=== PATIENT | male | born 1935 | race Caucasian/White ===

== ENCOUNTER 2022-06-17 10:48 | Inpatient (IN) | payer MEDICARE, MEDICAID, SELFPAY ==
[2022-06-17] VITALS (16 sets, daily range): BP systolic 97–173; BP diastolic 58–84; PULSE 62–77; RESP 16–22; TEMP 36.4–36.8; O2SAT 90–97; BMI 20.7
--- NOTE | 2022-06-17 11:26 | EKG12_ITS ---
Test Reason : WEAKNESS Blood Pressure : / mmHG Vent. Rate : 066 BPM Atrial Rate : 066 BPM P-R Int : 160 ms QRS Dur : 066 ms QT Int : 398 ms P-R-T Axes : 090 -06 056 degrees QTc Int : 417 ms Sinus rhythm with Premature supraventricular complexes Septal infarct , age undetermined Abnormal ECG Confirmed by BLAYNE TANG, СЕРГЕЙ ([id number]), food editor AKUA KRAFT ([id number]) on 06/18/2022 9:13:15 AM Referred By: BB Confirmed By:СЕРГЕЙ CISNEROS MD
--- NOTE | 2022-06-17 11:26 | RAD_ITS ---
STUDY: X-RAY CHEST REASON FOR EXAM: Male, 87 years old. Cough, sob . Weakness. Frequent falls. TECHNIQUE: PA and lateral views of the chest. COMPARISON: None. FINDINGS: EKG electrodes are seen. There is hyperinflation of the lungs consistent with chronic obstructive lung disease (COPD). Scattered calcified granulomas. Findings suggestive of scarring at the lung bases. There is no demonstrated pleural abnormality. Normal size heart. Normal mediastinum and nyla. Normal visualized pulmonary arteries. There is atherosclerotic calcification of the aortic arch with tortuosity. There are diffuse degenerative changes of the visualized thoracic spine. Normal visualized ribs, clavicles, and shoulders. There is no demonstrated abnormality of the visualized soft tissue structures of the upper abdomen. RAD/Chest PA and Lateral IMPRESSION: Hyperinflation. Findings suggestive of scarring at the lung bases. Electronically Signed: Higinio Velzaquez MD at 13:00 EST ,
--- NOTE | 2022-06-17 11:28 | ED.VIS.DYS ---
HPI History of Present Illness Chief Complaint: Shortness of Breath Informant: patient and family (daughter) Onset/Context/Timing Onset: Weeks (1) Context: gradual and onset Timing: Intermittent Quality: Positive for - (short of breath) Current Severity: Mild (sitting in ED at rest) Maximum Severity: Moderate Worsened by: Exertion and Coughing Relieved by: Rest Associated Symptoms cough and fever Chest Pain: Positive for None Narrative Narrative: 87-year-old male who has no known medical problems because he has not gone to the doctor in years, used to live in [place] but recently was brought here to live with his daughter and her . Until 1 week ago, he was ambulatory without assistance and doing well around the house, able to feed himself and clean himself, but in the past week he has had respiratory illness, some fevers near the beginning up to 101, but none known since then, dyspnea, and extreme weakness to the point now where he gets out of bed and falls and is unable to get around at all or even stand because of generally weak. No injury from the fall. He denies pain anywhere else including his chest. States he was a longtime former smoker, he cannot remember how long but started smoking when he was 11. PFSH PFSH Medical History no medical history no medical history Home Medications NK 06/17/22 [History Last Taken Unknown] Allergy/AdvReac Type Severity Reaction Status Date / Time No Known Allergies Allergy Verified 06/17/22 10:50 Social History Smoking Status: Former smoker ROS ROS ED ROS Narrative No travel out of the area except coming here from [place] months ago Constitutional Constitutional ED: Reports chills, fever(s), malaise and weakness Eyes Eyes: Denies change in vision or diplopia ENT ENT ED: Denies rhinorrhea or sore throat Cardiovascular Cardiovascular: Denies chest pain, palpitations or racing heartbeat Respiratory/Chest Respiratory/Chest: Reports cough, dyspnea and dyspnea on exertion Gastrointestinal Gastrointestinal: Denies abdominal pain, diarrhea, nausea or vomiting Genitourinary Genitourinary ED: Denies dysuria or hematuria Musculoskeletal Musculoskeletal: Denies back pain or neck pain Integumentary Denies abscess or rash Neurologic Neurologic: Denies headache(s), paresthesias or weakness Psychiatric Psychiatric: Denies anxiety or suicidal thoughts EXAM Physical Exam Const Vital Signs: 06/17/22 10:50 06/17/22 10:53 06/17/22 10:54 Temperature 98.3 F Temperature Source Oral Pulse Rate 72 Respiratory Rate 16 Respiratory Effort Short of Breath Labored Respiratory Depth Shallow Respiratory Pattern Normal Blood Pressure 156/68 H Blood Pressure Mean 97 Pulse Ox 91 90 Oxygen Delivery Method Room Air Room Air Nasal Cannula Oxygen Flow Rate (L/min) 2 06/17/22 10:55 06/17/22 11:44 06/17/22 12:01 Temperature 98.3 F Temperature Source Oral Pulse Rate 73 75 Respiratory Rate 18 20 H Respiratory Effort Respiratory Depth Respiratory Pattern Tachypnea Blood Pressure 156/68 H Blood Pressure Mean 97 Pulse Ox 93 97 Oxygen Delivery Method Nasal Cannula Nasal Cannula Oxygen Flow Rate (L/min) 2 2 06/17/22 12:02 06/17/22 11:53 06/17/22 13:16 Temperature 98 F 97.6 F L Temperature Source Oral Oral Pulse Rate 62 70 Respiratory Rate 22 H 22 H Respiratory Effort Respiratory Depth Respiratory Pattern Blood Pressure 173/65 H 159/63 H Blood Pressure Mean 101 95 Pulse Ox 96 93 Oxygen Delivery Method Nasal Cannula Nasal Cannula Nasal Cannula Oxygen Flow Rate (L/min) 2 2 2 06/17/22 13:16 Temperature Temperature Source Pulse Rate 70 Respiratory Rate 22 H Respiratory Effort Respiratory Depth Respiratory Pattern Blood Pressure 159/63 H Blood Pressure Mean 95 Pulse Ox 93 Oxygen Delivery Method Nasal Cannula Oxygen Flow Rate (L/min) 2 Positive well nourished, well developed and cachectic General Appearance ED: well developed, cachectic and NAD Nutritional Appearance: cachectic HEENT Reports moist mucous membranes normocephalic and atraumatic Eyes PERRL and EOMs intact bilaterally Neck full ROM, no lymphadenopathy, supple, no meningeal signs and no JVD Resp Resp Narrative: Normal effort of breathing, until patient has bronchospasm with each inspiration, limiting exam. Some Rales left base, may clear with coughing but exam limited due to lots of bronchospasm. Mild expiratory wheezing. Equal breath sounds bilaterally, trachea midline, no respiratory distress when not coughing. Cardio regular rate, regular rhythm and no murmurs Cardio Narrative: Faint heart sounds GI non-tender and non-distended Auscultation: normoactive bowel sounds Palpation: soft Back/Spine no CVA tenderness General Back: other FROM Extremity normal to inspection General Extremety ED: Negative for edema, pulses abnormal or tenderness General Extremity: Negative for edema or pulses abnormal Neuro oriented x3, CN's II-XII intact bilaterally and no sensory deficits noted Sensorium / Orientation: awake and alert Motor Exam: strength 5/5 throughout Psych mental status grossly normal Skin no rashes or lesions noted and no wounds MDM MDM MDM Narrative Medical decision making narrative: COVID and influenza swabs are negative. Two-view chest x-ray on my interpretation shows infiltrate versus scarring in the left base. I reviewed the radiologist's interpretation, suggesting scarring at the bases. He has a leukocytosis of 14.7. He is hypoxic to 87% on room air when he is ambulating gently. This is all an acute illness and I suspect it is pneumonia until proven otherwise. He needs to be admitted because of the severe functional decline, at the very least in addition to the above and oxygen requirement. Started him on antibiotics and plan is for admission to medical surgical floor. He was doing well while resting. Since he may have undiagnosed COPD given his smoking history and decreased breath sounds throughout, I also gave him Solu-Medrol 125 mg. Lab Data Attestation: I reviewed the patient's lab results. Labs: Laboratory Results - last 24 hr 06/17/22 06/17/22 11:40 11:40 WBC 14.7 H RBC 4.16 L Hgb 12.8 L Hct 38.4 L MCV 92.3 MCH 30.8 MCHC 33.3 RDW Std Deviation 46.6 H RDW Coeff of Renae 13.7 Plt Count 199 MPV 11.5 Immature Gran % (Auto) 1.000 H Neut % (Auto) 88.5 H Lymph % (Auto) 7.7 L Lucas % (Auto) 2.7 Eos % (Auto) 0.0 Baso % (Auto) 0.1 Absolute Neuts (auto) 13.0 H Absolute Lymphs (auto) 1.13 Nucleated RBC % 0 Sodium 139 Potassium 3.9 Chloride 104 Carbon Dioxide 30.0 Anion Gap 5 BUN 34 H Creatinine 1.02 Estim Creat Clear Calc 45.37 Est GFR (MDRD) Af Amer 89 Est GFR (MDRD) Non-Af 74 BUN/Creatinine Ratio 33.3 H Glucose 105 Calcium 8.7 Troponin I High Sens 54 Radiography Diagnostic Testing: Clinical Impression(s) from Imaging Studies Chest X-Ray 06/17/22 11:26 IMPRESSION: Hyperinflation. Findings suggestive of scarring at the lung bases. Electronically Signed: Higinio Velazquez MD at 13:00 EST , Rhythm Strip Rhythm Strip: Sinus Rhythm Rate: 70 Ectopy: None EKG Initial EKG: Attestation: I personally reviewed and interpreted this EKG as follows: Interpretation: Sinus Rhythm, No Acute Injury Pattern, Non-Specific ST Changes (likely artifat) and - (V1-2 Q's poss old septal MO) Prior: No Prior Discharge Plan Dx/Rx/DC Orders Clinical Impression: Pneumonia, Hypoxemia, Declining functional status Disposition Disposition: Acute Care [facility]
--- NOTE | 2022-06-17 11:33 | NURSING ---
NO OLD EKGS
[2022-06-17] MEDS: Ipratropium/Albuterol Sulfate 3 ML AMPUL.NEB INHALATION ×2 (11:41→20:28)
[2022-06-17 11:47] LABS: Absolute Lymphocyte Count 1.13 X10^3/uL (0.83-4.51); Basophil# 0.02 X10^3/uL; Basophil% 0.1 % (0-1); Hematocrit 38.4 % (40-54); Hemoglobin 12.8 g/dL (13.0-16.5); Lymphocyte # 1.13 X10^3/ul (0.83-4.51); Lymphocyte % 7.7 % (19-41); Mean Corp Hgb Conc 33.3 g/dL (32-36); Mean Corpuscular Hgb 30.8 pg (27.0-32.0); Mean Corpuscular Volume 92.3 fL (80-94); Mean Platelet Vol. 11.5 fl (6.2-12.0); Monocyte% 2.7 % (0-10); NRBC Flagged by Analyzer 0 % (0-5); Neutrophil # 12.96 X10^3/uL (2.7-7.7); Neutrophil % 88.5 % (47-70); Platelet Count 199 K/mm3 (150-450); RBC Distribution Width CV 13.7 % (11.6-14.6); RBC Distribution Width SD 46.6 fl (35.1-43.9); Red Blood Count 4.16 M/mm3 (4.6-6.2); White Blood Count 14.7 K/mm3 (4.4-11.0)
[2022-06-17 12:04] LABS: Anion Gap 5 (5-15); BUN 34 mg/dL (7-18); BUN/Creat Ratio 33.3 RATIO (10-20); Calcium,Total 8.7 mg/dL (8.5-10.1); Chloride 104 mmol/L (98-107); Creatinine, Serum 1.02 mg/dL (0.70-1.30); EST Glomerular Filtration Rate 74 mL/min (>60); Est Glom Filt Rate - Afr Amer 89 mL/min (>60); Estimated Creatinine Clearance 45.37 ml/min; Glucose 105 mg/dL (74-106); Potassium 3.9 mmol/L (3.5-5.1); Sodium Level 139 mmol/L (136-145); Troponin-I HS 54 pg/mL (3.0-78.0)
[2022-06-17] MEDS: MethylPREDNISolone 125 MG/2 ML Vial IV (12:16)
[2022-06-17] MEDS: 0.9% Normal Saline 1,000 ML 150 ML IV (12:16)
--- NOTE | 2022-06-17 13:17 | HP.PCM.HOS_ITS ---
HPI - General General Date of Service: 06/17/22 HPI Narrative MATTIE MIRELES, is a 87 M with a PMH as outlined who presents via the ED with a complaint of shortness of breath. Patient recently relocated to [place] from [place] to live with his daughter and son in law. He hasnt seen a doctor in several years. He has a long smoking history and smoked for~ 40 years; he says he quit in the 1970s and started when he was 11 years. He was brought in with a complaint of shortness of breath, with associated fever up to 101F. he had associated weakness and frequent falls and was unable to ambulate at home. He denied any chest pain, palpitations, dizziness, nausea, vomiting or diarrhea. Review of systems is otherwise negative. Vitals were temp of 97.6F, AL of 70, BP of 159/63, RR of 22 and he was saturating at 93% on 2L of oxygen. CBC showed wbc of 14.7, Hb of 12.8 and platelets of 199. CHemistry was largely unremarkable. COVID and influenza screen was negative. CXR showed findings suggestive of scarring at the lung bases. He was started on antibiotics for community acquired pneumonia, and is being admitted to be managed for debility due to community acquired pneumonia. [facility] Medical History no medical history Home Medications NK 06/17/22 [History Last Taken Unknown] Allergy/AdvReac Type Severity Reaction Status Date / Time No Known Allergies Allergy Verified 06/17/22 10:50 Social History Smoking Status: Former smoker ROS Constitutional Constitutional: Reports chills, fatigue, fever(s), malaise and weakness; Denies anorexia Eyes Eyes: Denies change in vision or discharge from eye(s) ENT HEENT: Denies dysphagia, headache(s), hearing loss, nasal congestion, sinus pressure or sore throat Cardiovascular Cardiovascular: Reports dyspnea on exertion; Denies chest pain, edema, l ightheadedness, orthopnea, palpitations, paroxysmal nocturnal dyspnea, rapid heart rate or syncope Respiratory/Chest Respiratory/Chest: Reports cough, dyspnea, productive cough, shortness of breath at rest and shortness of breath with exertion; Denies excessive phlegm production or wheezing Gastrointestinal Gastrointestinal: Denies abdominal pain, constipation, diarrhea, dyspepsia, hematemesis, nausea or vomiting Genitourinary Genitourinary: Denies burning urination or dysuria Musculoskeletal Musculoskeletal: Denies arthralgias Neurologic Neurologic: Denies confusion, dizziness, focal weakness or headache(s) Psychiatric Psychiatric: Denies anxiety Hematologic/Lymphatic Hematologic/Lymphatic: Denies anemia Vital Signs Vital Signs Vital Signs: 06/17/22 10:50 06/17/22 10:53 06/17/22 10:54 Temperature 98.3 F Temperature Source Oral Pulse Rate 72 Respiratory Rate 16 Respiratory Effort Short of Breath Labored Respiratory Depth Shallow Respiratory Pattern Normal Blood Pressure 156/68 H Blood Pressure Mean 97 Pulse Ox 91 90 Oxygen Delivery Method Room Air Room Air Nasal Cannula Oxygen Flow Rate (L/min) 2 06/17/22 10:55 06/17/22 11:44 06/17/22 12:01 Temperature 98.3 F Temperature Source Oral Pulse Rate 73 75 Respiratory Rate 18 20 H Respiratory Effort Respiratory Depth Respiratory Pattern Tachypnea Blood Pressure 156/68 H Blood Pressure Mean 97 Pulse Ox 93 97 Oxygen Delivery Method Nasal Cannula Nasal Cannula Oxygen Flow Rate (L/min) 2 2 06/17/22 12:02 06/17/22 11:53 Temperature 98 F Temperature Source Oral Pulse Rate 62 Respiratory Rate 22 H Respiratory Effort Respiratory Depth Respiratory Pattern Blood Pressure 173/65 H Blood Pressure Mean 101 Pulse Ox 96 Oxygen Delivery Method Nasal Cannula Nasal Cannula Oxygen Flow Rate (L/min) 2 2 Weight Weight: 136 lb 0.403 oz Body Mass Index (BMI) 20.7 Physical Exam Const alert, oriented x3 and no apparent distress Constitutional Narrative: frail General Appearance: cooperative HEENT normocephalic and head/scalp atraumatic HEENT Narrative: dry oral mucous membranes Mouth: moist mucous membranes abnormal Eyes PERRL and EOMs intact bilaterally Neck no lymphadenopathy Resp Resp Narrative: diminished breath sounds bilaterally; coarse crackles in left lower lung knapp, no wheezes. On 2L of oxygen by nasal canula Cardio regular rate, regular rhythm, S1 normal heart sound, S2 normal heart sound and no murmurs GI normal to inspection, nondistended, normoactive bowel sounds, soft to palpation and non-tender Extremity normal to inspection, full ROM and no clubbing, cyanosis or edema Neuro oriented x3, CN's II-XII intact bilaterally, moves all extremities and no focal motor deficits Sensorium / Orientation: awake and alert Motor Exam: strength 5/5 throughout Psych affect normal Results Lab / Micro Data Result Diagrams: 06/17/22 11:40 06/17/22 11:40 Labs: Laboratory Results - last 24 hr 06/17/22 11:40: WBC 14.7 H, RBC 4.16 L, Hgb 12.8 L, Hct 38.4 L, MCV 92.3, MCH 30.8, MCHC 33.3, RDW Std Deviation 46.6 H, RDW Coeff of Renae 13.7, Plt Count 199, MPV 11.5, Immature Gran % (Auto) 1.000 H, Neut % (Auto) 88.5 H, Lymph % (Auto) 7.7 L, [place] % (Auto) 2.7, Eos % (Auto) 0.0, Baso % (Auto) 0.1, Absolute Neuts (auto) 13.0 H, Absolute Lymphs (auto) 1.13, Nucleated RBC % 0 06/17/22 11:40: Sodium 139, Potassium 3.9, Chloride 104, Carbon Dioxide 30.0, Anion Gap 5, BUN 34 H, Creatinine 1.02, Estim Creat Clear Calc 45.37, Est GFR (MDRD) Af Amer 89, Est GFR (MDRD) Non-Af 74, BUN/Creatinine Ratio 33.3 H, Glucose 105, Calcium 8.7, Troponin I High Sens 54 Micro: Microbiology 06/17/22 11:35 Nasal Secretion SARS-CoV-2 & FLU Antigen (Rapid) - Final Rhythm Strip Rhythm Strip: Sinus Rhythm Rate: 70 Ectopy: None Radiology Impression Chest X-Ray 06/17/22 11:26 IMPRESSION: Hyperinflation. Findings suggestive of scarring at the lung bases. Electronically Signed: Higinio Velazquez MD at 13:00 EST , Assessment & Plan Assessment/Plan (1) Hypoxemia: (2) Pneumonia: PLAN: Plan #Hypoxia due to community acquired pneumonia * admit to med surg * hydrate gently with IVF * wbc is 14.7; he also complains of fever and productive cough * CXR showed hyperinflation and findings suggestive of scarring at hte lung bases * start on IV ceftriaxone and azithromycin * get sputum culture and complete respiratory panel * give IV solumedrol for presumed COPD exacerbation also, since he has a long history of smoking, and CXR showed hyperinflation suggestive of COPD * #Probable COPD * He has a very long smoke history. He says he started at 11 and he claims he stopped in the 1970s. However have difficulty believing this is initially patient will be treated IV no when he stopped. I suspect he may have smoked for several decades. * Chest x-ray does show hyperinflation suggestive of COPD. * Breathing treatments of bronchodilators. Also placed on IV Solu-Medrol for presumed COPD exacerbation. * #Elevated blood pressure * Blood pressure was 160/58 at time of review. * Patient has not seen a doctor in at least 15 years. * doesnt know if he has hypertension. If BP remains elevated, will start BP meds * IV hydralazine prn * #Debility due to frequent falls * has been falling often at home. hasnt hit his head * PT/OT consult * fall precautions * DVT prophylaxis: lovenox Code status: full code * Patient counseled extensively about different types of CODE STATUS including full code, DNR CCA and DNR CCA. Patient elects to be full code. * Total [id number] time 17 minutes. Charges/Coding Visit Charges Inpatient E&M: 01395 Init Hosp L3 Procedures Hospitalists Procedures: 94605 Advncd Care Plan 30 Min
--- NOTE | 2022-06-17 13:19 | NURSING ---
DR CARRENO FOR DR COLLAZO
[2022-06-17] MEDS: Ceftriaxone 1 GM/50 ML BAG IV ×2 (13:24→23:04)
--- NOTE | 2022-06-17 13:29 | NURSING ---
MED SURG KORAM PNEUMONIA, HYPOXEMIA
[2022-06-17] MEDS: 0.9% Saline Lock 10 ML Syringe IV ×2 (19:07→19:54)
[2022-06-17] MEDS: 0.9% Normal Saline 1,000 ML 125 ML IV (19:47)
[2022-06-17] MEDS: Nystatin Powder 15gm Bottle 1 APPLIC TOPICAL (23:04)
[2022-06-18] VITALS (11 sets, daily range): BP systolic 118–162; BP diastolic 50–85; PULSE 50–82; RESP 16–20; TEMP 36.5–37.2; O2SAT 92–97
[2022-06-18] MEDS: 0.9% Saline Lock 10 ML Syringe IV ×6 (04:16→22:42)
[2022-06-18] MEDS: Ipratropium/Albuterol Sulfate 3 ML AMPUL.NEB INHALATION ×4 (07:07→20:58)
[2022-06-18 07:40] LABS: Absolute Lymphocyte Count 0.72 X10^3/uL (0.83-4.51); Absolute Neutrophil Count 15.2 X10^3/uL (2.0-7.7); Basophil# 0.03 X10^3/uL; Basophil% 0.2 % (0-1); Hematocrit 35.9 % (40-54); Hemoglobin 11.8 g/dL (13.0-16.5); Lymphocyte # 0.72 X10^3/ul (0.83-4.51); Lymphocyte % 4.4 % (19-41); Mean Corp Hgb Conc 32.9 g/dL (32-36); Mean Corpuscular Hgb 30.6 pg (27.0-32.0); Mean Corpuscular Volume 93.2 fL (80-94); Mean Platelet Vol. 12.3 fl (6.2-12.0); Monocyte# 0.34 X10^3/uL; Monocyte% 2.1 % (0-10); NRBC Flagged by Analyzer 0 % (0-5); Neutrophil # 15.17 X10^3/uL (2.7-7.7); Neutrophil % 92.7 % (47-70); Platelet Count 207 K/mm3 (150-450); RBC Distribution Width CV 13.7 % (11.6-14.6); RBC Distribution Width SD 46.5 fl (35.1-43.9); Red Blood Count 3.85 M/mm3 (4.6-6.2); White Blood Count 16.4 K/mm3 (4.4-11.0)
[2022-06-18 07:49] LABS: Anion Gap 6 (5-15); BUN 33 mg/dL (7-18); BUN/Creat Ratio 35.8 RATIO (10-20); Calcium,Total 8.1 mg/dL (8.5-10.1); Chloride 108 mmol/L (98-107); Creatinine, Serum 0.92 mg/dL (0.70-1.30); EST Glomerular Filtration Rate 83 mL/min (>60); Est Glom Filt Rate - Afr Amer 100 mL/min (>60); Glucose 147 mg/dL (74-106); Potassium 3.7 mmol/L (3.5-5.1); Sodium Level 141 mmol/L (136-145)
[2022-06-18] MEDS: Ceftriaxone 1 GM/50 ML BAG IV ×2 (08:40→21:22)
[2022-06-18] MEDS: Enoxaparin 40 MG/0.4 ML Syringe SC (08:41)
[2022-06-18] MEDS: Nystatin Powder 15gm Bottle 1 APPLIC TOPICAL ×2 (08:41→21:22)
--- NOTE | 2022-06-18 10:09 | PN.HOSP_ITS ---
Subjective Subjective Follow-up for pneumonia, shortness of breath with productive cough. Objective Data Objective Data Vital Signs: Vital Signs Temp Pulse Resp BP Pulse Ox O2 Del Method O2 Flow Rate 97.8 F 68 20 H 135/65 H 94 Nasal Cannula 2 06/18/22 09:03 06/18/22 09:03 06/18/22 09:03 06/18/22 09:03 06/18/22 09:03 06/18/22 07:06 06/18/22 07:06 Oxygen Flow Rate (L/min) 2 Oxygen Delivery Method Nasal Cannula Weight: 136 lb 0.403 oz Body Mass Index (BMI) 20.7 Intake & Output: Intake and Output for Last 24 Hours 06/16/22 06/17/22 06/18/22 23:59 23:59 23:59 Intake Total 1765.42 / 1765.42 639.83 / 639.83 Output Total 0 / 0 Balance 1765.42 / 1765.42 639.83 / 639.83 Lab / Micro Data Result Diagrams: 06/18/22 06:45 06/18/22 06:45 Labs: Laboratory Results - last 24 hr 06/17/22 11:40: WBC 14.7 H, RBC 4.16 L, Hgb 12.8 L, Hct 38.4 L, MCV 92.3, MCH 30.8, MCHC 33.3, RDW Std Deviation 46.6 H, RDW Coeff of Renae 13.7, Plt Count 199, MPV 11.5, Immature Gran % (Auto) 1.000 H, Neut % (Auto) 88.5 H, Lymph % (Auto) 7.7 L, [place] % (Auto) 2.7, Eos % (Auto) 0.0, Baso % (Auto) 0.1, Absolute Neuts (auto) 13.0 H, Absolute Lymphs (auto) 1.13, Nucleated RBC % 0 06/17/22 11:40: Sodium 139, Potassium 3.9, Chloride 104, Carbon Dioxide 30.0, Anion Gap 5, BUN 34 H, Creatinine 1.02, Estim Creat Clear Calc 45.37, Est GFR (MDRD) Af Amer 89, Est GFR (MDRD) Non-Af 74, BUN/Creatinine Ratio 33.3 H, Glucose 105, Calcium 8.7, Troponin I High Sens 54 06/17/22 11:40: B-Natriuretic Peptide 176.0 H 06/18/22 06:45: WBC 16.4 H, RBC 3.85 L, Hgb 11.8 L, Hct 35.9 L, MCV 93.2, MCH 30.6, MCHC 32.9, RDW Std Deviation 46.5 H, RDW Coeff of Renae 13.7, Plt Count 207, MPV 12.3 H, Immature Gran % (Auto) 0.600, Neut % (Auto) 92.7 H, Lymph % (Auto) 4.4 L, [place] % (Auto) 2.1, Eos % (Auto) 0.0, Baso % (Auto) 0.2, Absolute Neuts (auto) 15.2 H, Absolute Lymphs (auto) 0.72 L, Nucleated RBC % 0 06/18/22 06:45: Sodium 141, Potassium 3.7, Chloride 108 H, Carbon Dioxide 27.0, Anion Gap 6, BUN 33 H, Creatinine 0.92, Estim Creat Clear Calc 50.30, Est GFR (MDRD) Af Amer 100, Est GFR (MDRD) Non-Af 83, BUN/Creatinine Ratio 35.8 H, Glucose 147 H, Calcium 8.1 L Micro: Microbiology 06/17/22 11:35 Nasal Secretion SARS-CoV-2 & FLU Antigen (Rapid) - Final Radiography Diagnostic Testing: Radiology Impression Chest X-Ray 06/17/22 11:26 IMPRESSION: Hyperinflation. Findings suggestive of scarring at the lung bases. Electronically Signed: Higinio Velazquez MD at 13:00 EST , Rhythm Strip Rhythm Strip: Sinus Rhythm Rate: 70 Ectopy: None Physical Exam Narrative Seen and examined. Patient has productive cough but he swallows the sputum. No fever recorded in the hospital. Patient walked around the nursing station gets short of breath. Physical exam General: Alert, Oriented x3, Cooperative HEENT: Atraumatic, PERRLA, EOMI, Normocephalic Oral: No Gingival or Mucosal Lesions/ Ulcerations Neck: Supple, No JVD, Negative Carotid Bruits Lungs: Air entry diminished in bilateral lung bases. Mild left-sided basilar crepitation. On 2 L of oxygen Cardiovascular: Regular rate, Regular Rhythm, Normal S1, Normal S2, systolic murmur LLSB Abdomen: Bowel Sounds Present, Soft, Non Tender, Non-Distended : No renal angle tenderness. No suprapubic tenderness. Extremities: No edema, Capillary Refill Less than 3 Seconds Skin: No rashes, No breakdown Musculoskeletal: No Tenderness to Palpation of Joints or Extremities, moderate atrophy of Thigh Muscles. Neurological: Cranial nerves II-XII grossly intact, DTR 2+/4 and Symmetrical, muscle strength 4+/5 at knee and hip joints. Psych/Mental Status: Normal Affect, Appropriate. Assessment & Plan Assessment/Plan (1) Hypoxemia: (2) Pneumonia: PLAN: Plan 87-year-old gentleman was admitted with shortness of breath and fever 101 Fahrenheit yesterday with weakness and frequent falls. No chest pain. He has long history of smoking more than 40 years, quit in 1969 started at the age of 11. #Hypoxia due to community acquired pneumonia: [facility] Has leukocytosis. Chest x-ray image reviewed shows infiltrate at left lung base with scarring. On IV ceftriaxone and azithromycin. Sputum culture pending.Rapid SARS-CoV-2 and flu antigen are negative. Urinary antigens are ordered. * give IV solumedrol for presumed COPD exacerbation also, since he has a long history of smoking, and CXR showed hyperinflation suggestive of COPD #Presumed COPD with exacerbation: Patient is on IV Solu-Medrol with prolonged history of his smoking for more than 40 years. Chest x-ray also shows hyperinflation. Patient will need outpatient pulmonary follow-up for PFT. #Elevated blood pressure * Blood pressure was 160/58 during admission. Has not seen For last 15 years. On IV hydralazine as needed. Most recent blood pressure is 118/50 and 135/65. Monitor blood pressure. Will need outpatient home BP monitoring or ambulatory BP monitoring to diagnose hypertension. #Debility due to frequent falls * has been falling often at home. hasnt hit his head * PT/OT consult * fall precautions DVT prophylaxis: lovenox Code status: full code * Patient counseled extensively about different types of CODE STATUS including full code, DNR CCA and DNR CCA. Patient elects to be full code. Charges/Coding Visit Charges Inpatient E&M: 77533 Subs Hosp L2
--- NOTE | 2022-06-18 14:01 | CHAPLAIN ---
Type of Pastoral Visit _x__ Initial Visit ___ Follow-up Visit ___ On-call Visit ___ General Patient Visit ___ Spiritual Assessment ___ Family Conference ___ Bereavement ___ Rapid Response ___ Code Blue ___ Other (describe below) Pastoral Care Referral From _x__ Patient ___ Family ___ Nurse ___ Physician ___ Cath Lab ___ Case Assistant ___ Other (describe below) Sacrament/Intervention _x__ Active listening ___ Anointing ___ Mu-Ism ___ Bereavement ___ Communion _x__ Joyce exploration ___ _x__ Life review _x__ Prayer ___ Reconciliation ___ Sacrament of Sick _x__ Supportive presence ___ Wedding ___ Other (describe below) Pastoral Comments patient is welcoming and reports on his situation and recent move back to this area to be close to family; pt states he is used to living [place] [facility] [place] and he swamps and likes it that way; pt identifies himself as a [place] in his joyce although he has explored several faiths including Catholicism, Protestantism, and Tenriism; pt welcomes prayer and presence for time of talking
--- NOTE | 2022-06-18 14:45 | CASEMGMT ---
Social Work? ? SW in to pt room to verify advance directives. Pt confirmed has AD and named?Amy Omalley,?daughter, as agent. SW made pt aware documents are not on file and if pt would like to bring these documents in the documents can be dropped off at the Medical Records department. Pt voiced understanding.?? ? ANDRÉS Hsieh?
--- NOTE | 2022-06-18 14:50 | CASEMGMT ---
MED RODRIGUEZ Assessment: Face to Face with pt for initial transition planning/care coordination assessment. MED RODRIGUEZ introduced self and role at [facility], pt voices understanding and consents to assessment. Pt is A/O x4 and answers all questions appropriately at this time. Pt sitting up in chair with oxygen on in no distress. Care providers, pharmacy, and demographics verified/updated. Admitting Dx: debility, community acquired pneumonia PCP:Pt denies, provided pt with a local healthcare directory as pt is interested in obtaining a pcp. Specialists:Pt denies. Preferred Pharmacy: [facility] Retail Insurance: [employer] [facility] Prescription Benefit: yes LNOK: Amy Omalley, dtr Living Arrangements: Pt lives with dtr, son in law and granddtr in a two story home with no steps to enter. Pt reports he is I in ADL's and denies concerns at home. Transportation: Pt drives self and denies concerns with transportation. DME/HHC/SNF: Pt has a cane at home. Pt denies need for a walker. Pt denies hx of HHC or SNF stays. Pt states he has not seen a doctor in 40 years. Pt states no concerns with going home at time of dc. Pt gave permission to speak to his dtr regarding his dc plan. TC to pt dtr Amy, she is interested in HHC for pt. Made her aware pt will need a PCP prior to being able to have this set up. She is aware pt was provided a local healthcare directory pamphlet in his room and a list of HHC providers including quality and resource use data and consistent with the patient?s preferred geographic region, medical needs, and insurance network were provided from the [employer] Guide for reference. Pt states no further concerns/needs. CM to follow. Advised pt to ask CM if any further question/concerns/needs arise, voices understanding. Pt Goal: Home Plan: Home
[2022-06-18] MEDS: guaiFENesin 600 MG Tablet PO (22:41)
[2022-06-18] MEDS: Menthol/Lanolin/Calamine/Znox 113 GM Tube 1 APPLIC TOPICAL (22:42)
[2022-06-19] VITALS (9 sets, daily range): BP systolic 106–134; BP diastolic 38–73; PULSE 64–91; RESP 16–20; TEMP 36.4–36.9; O2SAT 90–97
[2022-06-19] MEDS: 0.9% Saline Lock 10 ML Syringe IV ×3 (05:24→22:22)
[2022-06-19] MEDS: Ipratropium/Albuterol Sulfate 3 ML AMPUL.NEB INHALATION ×4 (07:25→20:32)
[2022-06-19] MEDS: Ceftriaxone 1 GM/50 ML BAG IV ×2 (10:05→22:22)
[2022-06-19] MEDS: guaiFENesin 600 MG Tablet PO ×2 (10:23→22:17)
[2022-06-19] MEDS: Enoxaparin 40 MG/0.4 ML Syringe SC (10:23)
[2022-06-19] MEDS: Nystatin Powder 15gm Bottle 1 APPLIC TOPICAL ×2 (10:23→22:18)
[2022-06-19] MEDS: Menthol/Lanolin/Calamine/Znox 113 GM Tube 1 APPLIC TOPICAL ×2 (10:23→22:17)
--- NOTE | 2022-06-19 10:28 | PCM.PN.HOSP ---
Subjective Subjective Follow-up for pneumonia with COPD exacerbation Objective Data Objective Data Vital Signs: Vital Signs Temp Pulse Resp BP Pulse Ox O2 Del Method O2 Flow Rate 98.4 F 86 19 H 131/73 H 92 Room Air 2 06/19/22 10:10 06/19/22 10:10 06/19/22 10:10 06/19/22 10:10 06/19/22 10:10 06/19/22 10:10 06/19/22 07:25 Oxygen Flow Rate (L/min) 2 Oxygen Delivery Method Room Air Weight: 136 lb 0.403 oz Body Mass Index (BMI) 20.7 Intake & Output: Intake and Output for Last 24 Hours 06/17/22 06/18/22 06/19/22 23:59 23:59 23:59 Intake Total 1765.42 / 1765.42 1731.83 / 1731.83 Output Total 850 / 850 Balance 1765.42 / 1765.42 881.83 / 881.83 Lab / Micro Data Result Diagrams: 06/18/22 06:45 06/18/22 06:45 Micro: Microbiology 06/18/22 21:40 Urine, Clean Catch Legionella Antigen - Final 06/18/22 21:40 Urine, Clean Catch Streptococcus pneumoniae Antigen (M - Final Streptococcus pneumonia Ag 06/17/22 11:35 Nasal Secretion SARS-CoV-2 & FLU Antigen (Rapid) - Final Rhythm Strip Rhythm Strip: Sinus Rhythm Rate: 70 Ectopy: None Physical Exam Narrative Seen and examined. Patient shortness of breath and cough is better. Physical exam General: Alert, Oriented x3, Cooperative HEENT: Atraumatic, PERRLA, EOMI, Normocephalic Oral: No Gingival or Mucosal Lesions/ Ulcerations. Oral mucosa moist. Neck: Supple, No JVD, Negative Carotid Bruits Lungs:? Air entry diminished in bilateral lung bases.? Bilateral coarse crepitations occasionally. Cardiovascular: Regular rate, Regular Rhythm, Normal S1, Normal S2, systolic murmur LLSB Abdomen: Bowel Sounds Present, Soft, Non Tender, Non-Distended : No renal angle tenderness.? No suprapubic tenderness. Extremities: No edema, Capillary Refill Less than 3 Seconds Skin: No rashes, No breakdown Musculoskeletal: No Tenderness to Palpation of Joints or Extremities, moderate atrophy of Thigh Muscles. Neurological: Cranial nerves II-XII grossly intact, DTR? 2+/4 and Symmetrical, muscle strength 4+/5 at knee and hip joints. Psych/Mental Status: Normal Affect, Appropriate. Assessment & Plan Assessment/Plan (1) Hypoxemia: (2) Pneumonia: PLAN: Plan 87-year-old gentleman was admitted with shortness of breath and fever 101 Fahrenheit yesterday with weakness and frequent falls. No chest pain. He has long history of smoking more than 40 years, quit in 1970 started at the age of 11. #Hypoxia due to community acquired pneumonia: [facility]. Has leukocytosis. Chest x-ray image reviewed shows infiltrate at left lung base with scarring. On IV ceftriaxone and azithromycin. Sputum culture pending.Rapid SARS-CoV-2 and flu antigen are negative. 06/19: Urinary antigens are negative. Sputum culture is pending. #Presumed COPD with exacerbation: Patient is on IV Solu-Medrol with prolonged history of his smoking for more than 40 years. Chest x-ray also shows hyperinflation. Patient will need outpatient pulmonary follow-up for PFT. 06/19: Shortness of breath is better. #Elevated blood pressure Blood pressure was 160/58 during admission. Has not seen For last 15 years. On IV hydralazine as needed. Most recent blood pressure is 118/50 and 135/65. Monitor blood pressure. Will need outpatient home BP monitoring or ambulatory BP monitoring to diagnose hypertension. #Debility due to frequent falls has been falling often at home. hasnt hit his head PT/OT consult fall precautions DVT prophylaxis: lovenox Code status: full code Patient counseled extensively about different types of CODE STATUS including full code, DNR CCA and DNR CCA. Patient elects to be full code. Charges/Coding Visit Charges Inpatient E&M: 86705 Subs Hosp L2
--- NOTE | 2022-06-19 16:11 | NURSING ---
Daughter had got the pt a new PCP with [facility] [address] - daughter could not remember the doctors name. appt is set for Jun 30, 2022 @ 10am.
[2022-06-20 02:55] VITALS: O2SAT 86
[2022-06-20 03:00] VITALS: BP 133/44; PULSE 54; RESP 18; TEMP 36.9; O2SAT 94
[2022-06-20] MEDS: 0.9% Saline Lock 10 ML Syringe IV (05:47)
[2022-06-20 07:03] VITALS: PULSE 64; RESP 18; O2SAT 95
[2022-06-20] MEDS: Ipratropium/Albuterol Sulfate 3 ML AMPUL.NEB INHALATION (07:04)
[2022-06-20 07:39] VITALS: BP 154/81; PULSE 81; RESP 18; TEMP 36.2; O2SAT 92
[2022-06-20] MEDS: Ceftriaxone 1 GM/50 ML BAG IV (09:28)
[2022-06-20] MEDS: Menthol/Lanolin/Calamine/Znox 113 GM Tube 1 APPLIC TOPICAL (09:29)
[2022-06-20] MEDS: Nystatin Powder 15gm Bottle 1 APPLIC TOPICAL (09:29)
[2022-06-20] MEDS: Enoxaparin 40 MG/0.4 ML Syringe SC (09:30)
[2022-06-20] MEDS: guaiFENesin 600 MG Tablet PO (09:30)
--- NOTE | 2022-06-20 10:13 | DCINST_ITS ---
Discharge Instructions Diet Discharge Diet: No restrictions Activity Discharge Activity: Return to Normal Activity and May Not Drive Weight Bearing Status: Weight bearing as tolerated Dressing / Incision Call your doctor if you observe: Fever of 101 or Higher, Coldness, Increased Pain, Numbness or Tingling, Change in Color, Inability to urinate, Inability to have a bowel movement, Shortness of breath, Dizziness, Fainting spells, Swelling in the ankles, Chest pain, Prolonged hiccupping, Increased palpitations (irregular heartbeat) and Calf discomfort Follow Up Care When: IN 2 WEEKS Test Results: Test results from this visit will be discussed in further detail at your follow- up appointment, if applicable. Discharge Plan Admission Admit Date/Time: 06/17/22 13:48 Primary Reason for Your Visit: Pneumonia and copd exa Attending Provider: Juno Workman Primary Care Provider: Care Physician,No Primary Consulting Providers: Roula Hurst Discharge Orders/Prescriptions Prescriptions: New cefdinir 300 mg capsule 300 mg PO BID 5 Days Qty: 10 0RF albuterol sulfate 90 mcg/actuation HFA aerosol inhaler 2 puff inhalation Q6H PRN (Reason: shortness of breath or wheezing) Qty: 8.5 0RF prednisone 20 mg tablet 40 mg PO DAILY 5 Days Qty: 10 0RF pseudoephedrine-guaifenesin [Mucinex D] 60-600 mg tablet extended release 12 hr 1 tab PO BID Qty: 14 0RF Referrals / Follow Up: Jean Le DO [Med Staff - Active Staff] - Within 2 Weeks (COPD exa with Pneumonia, PFT work up) Care Physician,No Primary [Primary Care Provider] - Disposition Disposition (needs filled in before D/C Order can be placed): Home, Self Care
[2022-06-20 10:22] VITALS: O2SAT 87; O2SAT 93; O2SAT 95
--- NOTE | 2022-06-20 10:22 | PCM.DC.SUM ---
Providers Date of Admission: 06/17/22 Date of Discharge: 06/20/22 Primary Care Physician: No Primary Care Phys Reason For Visit: DEBILITY, COMMUNITY ACQUIRED PNEUMONIA Diagnosis Discharge Diagnosis (1) Hypoxemia: Status: Acute Code(s): R09.02 - Hypoxemia (2) Pneumonia: Status: Acute Code(s): J18.9 - Pneumonia, unspecified organism Plan 87-year-old gentleman was admitted with shortness of breath and fever 101 Fahrenheit yesterday with weakness and frequent falls. No chest pain. He has long history of smoking more than 40 years, quit in 1969 started at the age of 11. #Hypoxia due to community acquired left lower lobe pneumococcal pneumonia: Patient is admitted on [facility] floor. Has leukocytosis. Chest x-ray image reviewed shows infiltrate at left lung base with scarring. On IV ceftriaxone and azithromycin. Sputum culture pending.Rapid SARS-CoV-2 and flu antigen are negative. 06/19: Urinary antigens are negative. 06/20: Hypoxia resolved. Urinary antigen positive for streptococcal pneumonia. The patient had about 4 days of IV antibiotic ceftriaxone. Discharged on 5 more days of [id number] mg twice daily. Prescription also given for prednisone 40 mg daily for 5 days burst steroid therapy and albuterol inhaler and Mucinex DM. Advised to follow-up in pulmonary clinic in 2 weeks for PFT. 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 #Presumed COPD with exacerbation: Patient is on IV Solu-Medrol with prolonged history of his smoking for more than 40 years. Chest x-ray also shows hyperinflation. Patient will need outpatient pulmonary follow-up for PFT. 06/19: Shortness of breath is better. #Elevated blood pressure Blood pressure was 160/58 during admission. Has not seen For last 15 years. On IV hydralazine as needed. Most recent blood pressure is 118/50 and 135/65. Monitor blood pressure. Will need outpatient home BP monitoring or ambulatory BP monitoring to diagnose hypertension. 06/20 blood pressure is 154/81. Prescription for low-dose lisinopril 5 mg daily. #Debility due to frequent falls has been falling often at home. hasnt hit his head PT/OT consult fall precautions DVT prophylaxis: lovenox Code status: full code Patient counseled extensively about different types of CODE STATUS including full code, DNR CCA and DNR CCA. Patient elects to be full code. Discharge medication reconciliation done. Discharge follow-up instructions completed. Discharge process discussed with the patient and all questions were answered to patient's satisfaction. Total time spent, exact 35 minutes on discharge meds reconciliation, examination, coordination of care with nurses and ancillary staff, review of imaging and blood test and discussion with the patient on follow-up instructions. Medications at Discharge Home Medications albuterol sulfate 90 mcg/actuation aerosol inhaler 2 puff inhalation Q6H PRN shortness of breath or wheezing #8.5 grams 06/20/22 cefdinir 300 mg capsule 300 mg PO BID 5 days #10 caps 06/20/22 lisinopril 5 mg tablet 5 mg PO DAILY #30 tabs 06/20/22 prednisone 20 mg tablet 40 mg PO DAILY 5 days #10 tabs 06/20/22 pseudoephedrine-guaifenesin ER 60 mg-600 mg tablet,extend release 12hr (Mucinex D) 1 tab PO BID cold symptoms #14 tabs 06/20/22 Physical Exam Narrative Seen and examined. Patient shortness of breath and cough is better. He is very pleasant with the nursing care Physical exam General: Alert, Oriented x3, Cooperative HEENT: Atraumatic, PERRLA, EOMI, Normocephalic Oral: No Gingival or Mucosal Lesions/ Ulcerations. Oral mucosa moist. Neck: Supple, No JVD, Negative Carotid Bruits Lungs:? Air entry diminished in bilateral lung bases.? Occasional rhonchi bilaterally. Cardiovascular: Regular rate, Regular Rhythm, Normal S1, Normal S2, systolic murmur LLSB Abdomen: Bowel Sounds Present, Soft, Non Tender, Non-Distended : No renal angle tenderness.? No suprapubic tenderness. Extremities: No edema, Capillary Refill Less than 3 Seconds Skin: No rashes, No breakdown Musculoskeletal: No Tenderness to Palpation of Joints or Extremities, moderate atrophy of Thigh Muscles. Neurological: Cranial nerves II-XII grossly intact, DTR? 2+/4 and Symmetrical, muscle strength 4+/5 at knee and hip joints. Psych/Mental Status: Normal Affect, Appropriate. Weight / BMI Weight Weight: 136 lb 0.403 oz Body Mass Index (BMI) 20.7 ABG / Lab / Microbiology Data Result Diagrams: 06/18/22 06:45 06/18/22 06:45 Microbiology: Microbiology 06/18/22 21:40 Urine, Clean Catch Legionella Antigen - Final 06/18/22 21:40 Urine, Clean Catch Streptococcus pneumoniae Antigen (M - Final Streptococcus pneumonia Ag 06/17/22 11:35 Nasal Secretion SARS-CoV-2 & FLU Antigen (Rapid) - Final D/C Instructions Discharge Diet: No restrictions Weight Bearing Status: Weight bearing as tolerated Call your doctor if you observe: Fever of 101 or Higher, Coldness, Increased Pain, Numbness or Tingling, Change in Color, Inability to urinate, Inability to have a bowel movement, Shortness of breath, Dizziness, Fainting spells, Swelling in the ankles, Chest pain, Prolonged hiccupping, Increased palpitations (irregular heartbeat) and Calf discomfort When: IN 2 WEEKS Meaningful Use Info Meaningful Use Diagnoses (Choose all that apply): None applicable Discharge Plan Admission Admit Date/Time: 06/17/22 13:48 Primary Reason for Your Visit: Pneumonia and copd exa Attending Provider: Juno Workman Primary Care Provider: Care Physician,No Primary Consulting Providers: Roula Hurst Discharge Orders/Prescriptions Prescriptions: New cefdinir 300 mg capsule 300 mg PO BID 5 Days Qty: 10 0RF albuterol sulfate 90 mcg/actuation HFA aerosol inhaler 2 puff inhalation Q6H PRN (Reason: shortness of breath or wheezing) Qty: 8.5 0RF prednisone 20 mg tablet 40 mg PO DAILY 5 Days Qty: 10 0RF pseudoephedrine-guaifenesin [Mucinex D] 60-600 mg tablet extended release 12 hr 1 tab PO BID Qty: 14 0RF lisinopril 5 mg tablet 5 mg PO DAILY Qty: 30 1RF Referrals / Follow Up: Jean Le DO [Med Staff - Active Staff] - Within 2 Weeks (COPD exa with Pneumonia, PFT work up) Care Physician,No Primary [Primary Care Provider] - Disposition Disposition (needs filled in before D/C Order can be placed): Home, Self Care Charges/Coding Visit Charges Inpatient E&M: 53857 Disch Hosp >30min
--- NOTE | 2022-06-20 11:09 | CASEMGMT ---
Addendum entered by Teodora Tobias 06/20/22 16:03: Ref[facility]. Addendum entered by Teodora Tobias 06/20/22 15:57: Pt dtr states pt needs a FWW, rx signed and Ellie at [facility] aware as she is on the floor providing oxygen tank. Addendum entered by Teodora Tobias 06/20/22 15:27: Referral sent to [facility] via [facility] at this time. Per pt nurse, pt does not have credit card with him. TC to Ellie at [facility], she is aware to call pt dtr for this information. Addendum entered by Teodora Tobias 06/20/22 15:10: Pt qualifies for home oxygen, MED RODRIGUEZ in to pt room pt would like MED RODRIGUEZ to call his dtr for her to pick which oxygen company to use. Explained homegoing oxygen process with pt. TC to pt dtr Amy, provided her with a verbal local in network DME company list, she chose [facility]. Also explained homegoing oxygen process with her. She asks that someone call her when pt is ready to leave the hospital. Updated nurse. She denies further questions. Original Note: MED RODRIGUEZ in to pt room, pt states he feels ready for dc. Offered to obtain FWW for pt, pt declines. Offered to give pt rx for FWW in case he changes his mind once home, he declines this. He is aware that once he establishes with his PCP, he can obtain HHC if he would like. Pt verbalizes understanding and thanks MED RODRIGUEZ.
[2022-06-20 15:24] VITALS: BP 159/86; PULSE 64; RESP 18; TEMP 36.4; O2SAT 96
== END 2022-06-20 16:11 | disposition home or self-care (01) | DRG 194 ==
LOC: ED 14:05 → MS3 15:49
PROVIDERS: Admitting Provider Student in an Organized Health Care Education/Training Program; Emergency Provider Emergency Medicine; Visit Provider Internal Medicine
DX: J13 Pneumonia due to Streptococcus pneumoniae (principal); J44.1 Chronic obstructive pulmonary disease with (acute) exacerbation; J44.0 Chronic obstructive pulmonary disease with (acute) lower respiratory infection; R53.81 Other malaise; R09.02 Hypoxemia; R03.0 Elevated blood-pressure reading, without diagnosis of hypertension; R29.6 Repeated falls; Z79.899 Other long term (current) drug therapy; Z87.891 Personal history of nicotine dependence
CPT/HCPCS: 36415; 71046; 80048; 83880; 84484; 85025; 87428; 87449; 93005; 94640; 94668; 97162; 97166; 97530; 97535; 99252; 99285; J7030; J7050; A4216; G0463